=== PATIENT | male | born 1965 | race Caucasian/White ===

== ENCOUNTER 2022-02-08 10:04 | Outpatient (CLI) | payer BC, SELFPAY ==
[2022-02-08 16:53] LABS: Chloride* 105 mmol/L (96-114); Potassium* 4.1 mmol/L (3.6-5.1); Sodium* 139 mmol/L (135-149)
[2022-02-08 16:55] LABS: Cholesterol* 183 mg/dL (90-199)
[2022-02-08 16:56] LABS: Blood Urea Nitrogen* 20 mg/dL (7-30); Calcium* 8.2 mg/dL (8.4-10.6); Estimated Glomerular Filt Rate 88 ml/min; Glucose* 95 mg/dL (60-115); HDL Cholesterol* 33 mg/dL (>=40); LDL Cholesterol Calculated 124 mg/dL (<100); Triglycerides* 131 mg/dL (40-149)
[2022-02-08 17:13] LABS: Carbon Dioxide* 25 mmol/L (20-32)
[2022-02-08 17:27] LABS: PSA Screen* 2.42 ng/mL (0.10-4.00)
== END 2022-02-08 10:05 | disposition home or self-care (01) ==
PROVIDERS: PCP Family Medicine; Visit Provider Family Medicine
DX: I10 Essential (primary) hypertension (principal); M10.9 Gout, unspecified; Z12.5 Encounter for screening for malignant neoplasm of prostate
CPT/HCPCS: 80048; 80061; 84153

== ENCOUNTER 2024-03-25 09:03 | Outpatient (CLI) | payer BC, SELFPAY | END 2024-03-25 09:04 | disposition home or self-care (01) | PROVIDERS: PCP Family Medicine; Visit Provider Family Medicine | DX: I10 Essential (primary) hypertension (principal); Z13.6 Encounter for screening for cardiovascular disorders; Z12.5 Encounter for screening for malignant neoplasm of prostate | CPT/HCPCS: 80048; 80061; 85025; G0103 ==